=== PATIENT | female | born 1985 | race Caucasian/White ===

== ENCOUNTER 2019-07-11 11:21 | Emergency (ER) | payer OTHER ==
[2019-07-11 11:28] VITALS: BMI 32.6
[2019-07-11 12:36] LABS: BASO % 0.5 % (0-2.0); EOS % 6.3 % (0-4.5); HEMATOCRIT 41.2 % (32.4-45.2); HEMOGLOBIN 13.5 GM/dL (10.7-15.3); LYMPH % 20.1 % (8-40); MCH 26.2 pg (25.7-33.7); MCHC 32.7 g/dl (32.0-36.0); MEAN CELL VOLUME 80.2 fl (80-96); MEAN PLT VOLUME 7.7 fl (7.5-11.1); MONO % 4.8 % (3.8-10.2); NEUT % 68.3 % (42.8-82.8); PLATELET COUNT 432 K/MM3 (134-434); RBC 5.14 M/mm3 (3.60-5.2); RDW 13.5 % (11.6-15.6); WHITE BLOOD COUNT 11.4 K/mm3 (4.0-10.0)
[2019-07-11 12:58] LABS: ALBUMIN 3.6 g/dl (3.4-5.0); BILIRUBIN,TOTAL 0.6 mg/dL (0.2-1); BLOOD UREA NITROGEN 12.3 mg/dL (7-18); CREATININE 0.9 mg/dL (0.55-1.3); POTASSIUM 4.6 mmol/L (3.5-5.1); TOT PROT 7.8 g/dl (6.4-8.2)
[2019-07-11] MEDS ORDERED: ACETAMINOPHEN 325 MG TABLET (FP) PO ONE (13:03)
--- NOTE | 2019-07-11 13:03 | PDOC ---
History of Present Illness - General Chief Complaint: Pain Stated Complaint: PAIN Time Seen by Provider: 07/11/19 12:01 History Source: Patient Exam Limitations: No Limitations Past History - Past Medical History Allergies/Adverse Reactions: Allergies Allergy/AdvReac Type Severity Reaction Status Date / Time No Known Allergies Allergy Verified 07/11/19 11:28 Home Medications: Ambulatory Orders NK [No Known Home Medication] 07/11/19 COPD: No Kidney Stones: Yes - Reproductive History Is Patient Now?: No - Psycho Social/Smoking Cessation Hx Smoking History: Never smoked *Physical Exam - Vital Signs Last Vital Signs Temp Pulse Resp BP Pulse Ox 98.1 F 93 H 18 138/81 99 07/11/19 11:26 07/11/19 11:26 07/11/19 11:26 07/11/19 11:26 07/11/19 11:26 - Physical Exam General Appearance: No: Apparent Distress Respiratory/Chest: positive: Lungs Clear, Normal Breath Sounds. negative: Respiratory Distress Cardiovascular: positive: Regular Rhythm, Regular Rate, S1, S2. negative: Murmur Female Pelvic Exam: negative: adnexal tenderness Gastrointestinal/Abdominal: positive: Tender (along RLQ), Soft. negative: Distended, Guarding, Rebound Neurologic: positive: Alert ED Treatment Course - LABORATORY CBC & Chemistry Diagram: 07/11/19 12:20 07/11/19 12:20 - ADDITIONAL ORDERS Additional order review: Laboratory Results 07/11/19 07/11/19 12:20 12:20 Sodium 139 Potassium 4.6 Chloride 105 Carbon Dioxide 31 Anion Gap 3 L BUN 12.3 Creatinine 0.9 Est GFR (CKD-EPI)AfAm 95.34 Est GFR (CKD-EPI)NonAf 82.26 Random Glucose 94 Calcium 9.0 Total Bilirubin 0.6 AST 15 ALT 24 Alkaline Phosphatase 67 Total Protein 7.8 Albumin 3.6 Urine HCG, Qual Negative 07/11/19 12:20 RBC 5.14 MCV 80.2 MCHC 32.7 RDW 13.5 MPV 7.7 Neutrophils % 68.3 Lymphocytes % 20.1 Monocytes % 4.8 Eosinophils % 6.3 H Basophils % 0.5 - RADIOLOGY Radiology Studies Ordered: Category Date Time Status TRANSVAGINAL ULTRASOUND US [US] Stat Ultrasound 07/11/19 12:09 Taken Medical Decision Making - Medical Decision Making 34 y/o F hx of L ovarian cyst, kidney stones presents with intermittent pelvic pain (more along R side) since 07/05 along with nausea and lightheadedness. Mentions she is attempting artificial insemination and last was injected 06/20. Patient started having vaginal spotting on 07/01 which got slightly heavier and then eventually stopped on 07/08. Mentions she felt the worse on 07/05 when she threw up; states was evaluated at [facility], but states was told everything is fine. Denies fever, sob, cp, diarrhea, urinary symptoms. 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 It was a pleasure taking care of you. There were no acute findings noted on your imaging Continue follow-up with your INSTALLATION SUPERINTENDENT Return to the Emergency Department if your symptoms worsen or persist or have other concerning symptoms. - Post Discharge Activity
[2019-07-11 13:08] LABS: URINE APPEARANCE CLOUDY; URINE BILIRUBIN NEGATIVE (NEGATIVE); URINE COLOR YELLOW; URINE GLUCOSE (UA) NEGATIVE (NEGATIVE); URINE KETONE NEGATIVE (NEGATIVE); URINE LEUK ESTERASE NEGATIVE (NEGATIVE); URINE NITRITE NEGATIVE (NEGATIVE); URINE PROTEIN NEGATIVE (NEGATIVE); URINE UROBILINOGEN 0.2 mg/dL (0.2-1.0)
[2019-07-11] MEDS ORDERED: ACETAMINOPHEN 325 MG TABLET (FP) ONE (13:11)
[2019-07-11 15:44] VITALS: BP 112/75; PULSE 79; TEMP 98.2
== END 2019-07-11 15:44 | disposition home or self-care (01) ==
LOC: JER 11:21
DX: R10.2 Pelvic and perineal pain (principal)
CPT/HCPCS: 36415; 74177-TC; 76830-TC; 80053; 81003; 84703; 85025; 87086; 99283-25

== ENCOUNTER 2019-08-02 02:39 | Emergency (ER) | payer OTHER ==
--- NOTE | 2019-08-02 03:13 | PDOC ---
History of Present Illness <Ele Solis - Last Filed: 08/02/19 05:52> - General History Source: Patient Exam Limitations: No Limitations - History of Present Illness Initial Comments: 08/02/19 03:09 HPI: 34yo F with PMH kidney stones, reported L ovarian cyst, fertility treatments, presenting with abdominal pain for 3 hours. Reports waking up at midnight with LLQ abdominal pain, sharp, intermittent, 7/10, radiating to L groin. Has not tried any medications. Also endorsing some vague lower back pain that she cannot pinpoint. No urinary complaints - no pain, frequency, smells, colors. Normal BMs without blood or dark color. Denies nausea/vomiting. Seen 07/11/19 for similar symptoms. Normal TVUS and CTAP at that time. Neither imaging modality made note of significant ovarian cysts. Sent with DIVER HELPER follow up. Of note, she is undergoing fertility treatments, last inseminated in mid June. Due for period in 2 days. All: NKDA Meds: Per chart PMH: As above PSH: For kidney stone SHx: Denies toxic habits <Felipe Ren - Last Filed: 08/02/19 05:56> - General Stated Complaint: ABDOMINAL PAIN LEFT SIDE Time Seen by Provider: 08/02/19 03:08 Past History <Ele Solis - Last Filed: 08/02/19 05:52> - Past Medical History COPD: No Kidney Stones: Yes - Psycho Social/Smoking Cessation Hx Smoking History: Never smoked <Felipe Ren - Last Filed: 08/02/19 05:56> - Past Medical History Allergies/Adverse Reactions: Allergies Allergy/AdvReac Type Severity Reaction Status Date / Time No Known Allergies Allergy Verified 07/11/19 11:28 Home Medications: Ambulatory Orders NK [No Known Home Medication] 07/11/19 Review of Systems - Review of Systems Able to Perform ROS?: Yes Is the patient limited Swedish proficient: Yes Constitutional: No: Chills, Fever, Weakness HEENTM: No: Recent change in vision, Nose Congestion, Throat Pain Respiratory: No: Cough, Orthopnea, Shortness of Breath Cardiac (ROS): No: Chest Pain, Edema, Irregular Heart Rate, Lightheadedness, Palpitations, Syncope, Chest Tightness ABD/GI: No: Constipated, Diarrhea, Nausea, Poor Appetite, Poor Fluid Intake, Vomiting : No: Burning, Dysuria, Frequency Musculoskeletal: Yes: See HPI, Back Pain. No: Muscle Pain, Muscle Weakness Integumentary: No: Bruising, Erythema, Pruritus, Rash Neurological: No: Headache, Numbness, Tingling, Weakness Psychiatric: No: Stressors, Change in Appetite Endocrine: No: Increased Thirst, Increased Urine, Change in Weight Hematologic/Lymphatic: No: Anemia, Blood Clots, Easy Bleeding All Other Systems: Reviewed and Negative <Felipe Ren - Last Filed: 08/02/19 05:56> *Physical Exam - Vital Signs Last Vital Signs Temp Pulse Resp BP Pulse Ox 98.2 F 84 15 112/83 98 08/02/19 03:00 08/02/19 03:00 08/02/19 03:00 08/02/19 03:00 08/02/19 03:00 <Ele Solis - Last Filed: 08/02/19 05:52> - Physical Exam 08/02/19 03:13 Vitals reviewed, AFVSS GEN: Well appearing, appears stated age, NAD, comfortable. AAOx3. HEENT: NCAT, EOMI, PERRL. Sclera anicteric, noninjected. No facial asymmetry. Moist mucous membranes. Normal voice. Trachea midline. CV: RRR, S1/S2, no murmurs / rubs / gallops appreciated. LUNG: CTAB, normal work of breathing. No wheezes, rales, rhonchi. No cough. Speaking full sentences. GI: Soft, Non-distended, +BS, no guarding, no rebound. No masses. Neg CVAT b/l. +TTP LLQ in one spot that moves after distraction. EXTREMITIES: 2+ distal pulses. No LE edema. No obvious deformities of all extremities. SKIN: Warm, dry, no rashes appreciated, non-jaundiced. PSYCH: Normal mood and affect. Cooperative and appropriate. NEURO: CN grossly intact. Moving all extremities well. Normal strength and sensation grossly. Normal gait. <Felipe Ren - Last Filed: 08/02/19 05:56> ED Treatment Course - LABORATORY CBC & Chemistry Diagram: 08/02/19 04:32 08/02/19 04:32 - ADDITIONAL ORDERS Additional order review: Laboratory Results 08/02/19 08/02/19 08/02/19 04:32 04:32 04:32 PT with INR 12.40 INR 1.05 Sodium Potassium Chloride Carbon Dioxide Anion Gap BUN Creatinine Est GFR (CKD-EPI)AfAm Est GFR (CKD-EPI)NonAf Random Glucose Calcium Total Bilirubin AST ALT Alkaline Phosphatase Total Protein Albumin Urine Color Yellow Urine Appearance Clear Urine pH 7.0 Ur Specific Sellers 1.025 Urine Protein Negative Urine Glucose (UA) Negative Urine Ketones Negative Urine Blood Trace-intact Urine Nitrite Negative Urine Bilirubin Negative Urine Urobilinogen 0.2 Ur Leukocyte Esterase Trace Urine WBC (Auto) 2.4 Urine RBC (Auto) 6.1 Urine Casts (Auto) 2.23 U Epithel Cells (Auto) 2.5 Urine Bacteria (Auto) 67.6 Urine HCG, Qual Blood Type B POSITIVE Antibody Screen Negative 08/02/19 08/02/19 04:32 04:32 PT with INR INR Sodium 139 Potassium 4.4 Chloride 105 Carbon Dioxide 29 Anion Gap 5 L BUN 12.0 Creatinine 0.8 Est GFR (CKD-EPI)AfAm 109.93 Est GFR (CKD-EPI)NonAf 94.85 Random Glucose 91 Calcium 9.0 Total Bilirubin 0.4 AST 14 L ALT 20 Alkaline Phosphatase 62 Total Protein 7.4 Albumin 3.6 Urine Color Urine Appearance Urine pH Ur Specific Sellers Urine Protein Urine Glucose (UA) Urine Ketones Urine Blood Urine Nitrite Urine Bilirubin Urine Urobilinogen Ur Leukocyte Esterase Urine WBC (Auto) Urine RBC (Auto) Urine Casts (Auto) U Epithel Cells (Auto) Urine Bacteria (Auto) Urine HCG, Qual Negative Blood Type Antibody Screen 08/02/19 04:32 RBC 4.99 MCV 80.7 MCHC 32.5 RDW 13.4 MPV 8.0 Neutrophils % 68.1 Lymphocytes % 22.3 Monocytes % 4.6 Eosinophils % 4.6 H Basophils % 0.4 - Medications Given in the ED: ED Medications Discontinued Medications Generic Name Dose Route Start Last Admin Trade Name Freq PRN Reason Stop Dose Admin Acetaminophen 1,000 mg 08/02/19 03:43 08/02/19 04:19 Ofirmev Injection - IVPB 08/02/19 03:44 1,000 mg ONCE ONE Administration Sodium Chloride 1,000 ml 08/02/19 03:43 08/02/19 04:19 Normal Saline - IV 08/02/19 03:44 1,000 ml ONCE ONE Administration <Ele Solis - Last Filed: 08/02/19 05:52> - LABORATORY CBC & Chemistry Diagram: 08/02/19 04:32 08/02/19 04:32 <Felipe Ren - Last Filed: 08/02/19 05:56> Medical Decision Making - Medical Decision Making 08/02/19 04:06 34yo F with PMH kidney stones, reported L ovarian cyst, fertility treatments, presenting with abdominal pain for 3 hours. History notable for similar presentation 07/11/19, self resolving pain, fertility treatments. Exam notable for stable vitals, LLQ tenderness with distractibility. Concerning for ruptured ovarian cyst vs gas pains vs UTI unlikely torsion given degree of pain, occurring at rest.. - CBC, CMP, Coags - UA, UCx, UPreg - Ofirmev - 1L IVF 08/02/19 05:32 - Labs unremarkable 08/02/19 05:54 - Patient feeling better - F/u with DIVER HELPER Dispo: Home <Felipe Ren - Last Filed: 08/02/19 05:56> Discharge <Ele Solis - Last Filed: 08/02/19 05:52> - Discharge Information Problems reviewed: Yes - Admission No <Felipe Ren - Last Filed: 08/02/19 05:56> - Discharge Information Clinical Impression/Diagnosis: Gas pain Condition: Improved Disposition: HOME - Follow up/Referral Referrals: Joseph Lopez MD [Primary Care Provider] - - Patient Discharge Instructions Patient Printed Discharge Instructions: Eating a Diet Rich in Fruits and Vegetables, Ovarian Cyst Additional Instructions: Thank you for choosing [facility]. It was a pleasure taking care of you. There were no acute findings noted on your imaging Continue follow-up with your NURSE MIDWIFE Return to the Emergency Department if your symptoms worsen or persist or have other concerning symptoms. - Post Discharge Activity Work/Back to School Note: Back to School
[2019-08-02 03:42] VITALS: TEMP 98.2; BMI 32.6
[2019-08-02] MEDS ORDERED: SODIUM CHLORIDE 0.9% 500 ML INFUS.BAG IV ONE (03:43)
[2019-08-02] MEDS ORDERED: ACETAMINOPHEN 1000 MG/100 ML VIAL (NON FORMULARY) IVPB ONE (03:43)
[2019-08-02] MEDS ORDERED: ACETAMINOPHEN INJECTION 100 ML IVPB ONE (04:05)
[2019-08-02 05:03] LABS: BASO % 0.4 % (0-2.0); EOS % 4.6 % (0-4.5); HEMATOCRIT 40.3 % (32.4-45.2); HEMOGLOBIN 13.1 GM/dL (10.7-15.3); LYMPH % 22.3 % (8-40); MCH 26.2 pg (25.7-33.7); MCHC 32.5 g/dl (32.0-36.0); MEAN CELL VOLUME 80.7 fl (80-96); MONO % 4.6 % (3.8-10.2); NEUT % 68.1 % (42.8-82.8); PLATELET COUNT 377 K/MM3 (134-434); RBC 4.99 M/mm3 (3.60-5.2); RDW 13.4 % (11.6-15.6); WHITE BLOOD COUNT 11.2 K/mm3 (4.0-10.0)
[2019-08-02 05:22] LABS: INR 1.05 (0.83-1.09); PROTHROMBIN TIME (PATIENT) 12.4 SEC (9.7-13.0)
[2019-08-02 05:27] LABS: ALBUMIN 3.6 g/dl (3.4-5.0); BILIRUBIN,TOTAL 0.4 mg/dL (0.2-1); CREATININE 0.8 mg/dL (0.55-1.3); POTASSIUM 4.4 mmol/L (3.5-5.1); TOT PROT 7.4 g/dl (6.4-8.2)
--- NOTE | 2019-08-02 05:28 | PDOC ---
Attending Attestation - Resident Resident Name: Felipe Ren - ED Attending Attestation I have performed the following: I have examined & evaluated the patient, The case was reviewed & discussed with the resident, I agree w/resident's findings & plan - HPI HPI: 08/02/19 05:28 Pt comes with abdominal pain. She was here in the past month with similar pain, and at that time, she had Labs, UA and CT and sono done. Pt states that she has LLQ pain. Pt has no vag bleed and no discharge and no dysuria. Pt has no fever. No N/V/D - Physicial Exam PE: 08/02/19 06:30 Pt is afebrile HEENT normal Lungs CTAB Heart [id number] abd soft minimal LLQ tenderness No flank pain no neuro deficits. - Medical Decision Making 08/02/19 05:52 LLQ pain not resolved. Pt is very upset that we are not repeating imaging studies. However labs all WNL. She has minimal bacteria in the urine, trace leukocytes and negligible WBC and RBC Vital signs are completely normal. Pt is stable for outpatient follow up with RADIOLOGIC TECHNOLOGIST. She wants a 2nd opinion, and I explained to her that today's workup is complete and that she is welcome to go to another ER.
[2019-08-02 05:31] LABS: URINE APPEARANCE Clear; URINE BILIRUBIN Negative (NEGATIVE); URINE COLOR Yellow; URINE GLUCOSE (UA) Negative (NEGATIVE); URINE KETONE Negative (NEGATIVE); URINE LEUK ESTERASE Trace (NEGATIVE); URINE NITRITE Negative (NEGATIVE); URINE PROTEIN Negative (NEGATIVE); URINE UROBILINOGEN 0.2 mg/dL (0.2-1.0)
[2019-08-02 05:37] LABS: EPI CELLS 2.5 /HPF (0-5/HPF); HYALINE CASTS 2.23 /lpf (0-8); URINE BACTERIA 67.6 /hpf (NEGATIVE); URINE RBC 6.1 /hpf (0-4); URINE WBC 2.4 /hpf (0-5)
[2019-08-02] MEDS ORDERED: LACTULOSE 20 GM/30 ML UDC (FOR ORAL USE ONLY) PO ONE (05:52)
[2019-08-02] MEDS ORDERED: LACTULOSE 20 GM/30 ML UDC (FOR ORAL USE ONLY) ONE (06:23)
[2019-08-02 06:43] VITALS: BP 129/93; PULSE 90
== END 2019-08-02 06:41 | disposition home or self-care (01) ==
LOC: JER 02:39
PROC: 3E033NZ Introduction of Analgesics, Hypnotics, Sedatives into Peripheral Vein, Percutaneous Approach (ICD-10-PCS; principal; 2019-08-02)
DX: R14.1 Gas pain (principal); N83.202 Unspecified ovarian cyst, left side
CPT/HCPCS: 36415; 80053; 81003; 84703; 85025; 85610; 86850; 86900; 86901; 87086; 96374; 99283-25; J0131